=== PATIENT | female | born 1955 | race Caucasian/White ===

== ENCOUNTER → 2016-06-27 | Outpatient (CLI) | payer BC, OTHER ==
[~2016-06-27] MED LIST: /AMLO25TA PO; ALBU20IN INH; CEPALOZ2 MT; DEXA4TA PO; DOCU10ELUD PO; IPRA2IN INH; JANU50TA8 PO; LIDOCAINE 1% MDV 20ML VIAL As Ordered ONE; LORTTAB8 PO; MIRA255PW PO; MUCI600T34 PO; OCEA0.65; PRIL20CA PO; SIMV20TA2 PO; VIBR100C PO; VITA200028 PO; VITAMIN D2 PO
--- NOTE | 2016-06-27 15:52 | REP ---
ULTRASOUND GUIDED RIGHT THYROID BIOPSY: The procedure was performed under the direct supervision of Dr. Estrada. The patient has a history of a new 1.5 x 0.8 x 1.0 cm solid nodule in the right thyroid seen on a previous ultrasound dated 06/12/2016 from [facility]. The risks and benefits of the procedure were explained to the patient and informed consent was obtained. The right thyroid nodule is localized utilizing ultrasound guidance. The skin was prepped and draped in a sterile fashion. 1% lidocaine was used as a local anesthetic. Using ultrasound guidance four fine needle aspirations were obtained using 25 gauge needles. The samples were sent to the lab for analysis. The patient tolerated the procedure well and there were no immediate complications. After the appropriate amount of monitored convalescence the patient was discharged from the department. Reviewed by YENNI Milligan 06/27/2016 04:08 PEdited and Signed by Jhon Estrada MD 06/27/2016 04:33 P
--- NOTE | 2016-06-27 16:25 | REP ---
Thyroid sonography: History: The patient referred for ultrasound-guided fine needle aspiration biopsy of the thyroid. Pre-procedure scanning. Comparison sonography is from June 12, 2016 at [facility]. Findings: The left thyroid lobe is removed. The right lobe measures 5.5 x 4.7 x 3.0 cm. There are multiple right-sided nodules seen. Several of these are adjacent to and may indeed be part of the larger nodule in the right lobe seen previously. Anteriorly and laterally and somewhat inferiorly, there is a 1.4 x 1.4 x 0.7 cm nodule, which is new and hypoechoic and corresponds to the new nodule seen on the recent prior study. This nodule was selected as the target for today's FNA. Impression: Multinodular right thyroid lobe. Status post left thyroidectomy. A 1.4 cm solid and new nodule was selected for FNA aspiration biopsy. Signed by Jhon Estrada MD 06/27/2016 04:36 P
== END ==
LOC: M RADPRO 10:35
PROVIDERS: ATTEND Family Medicine
DX: E04.1 Nontoxic single thyroid nodule (principal)

== ENCOUNTER → 2017-03-16 | Outpatient (REF) | payer BC, OTHER ==
[~2017-03-16] MED LIST changes: -LIDOCAINE 1% MDV 20ML VIAL As Ordered ONE
== END ==
LOC: M LAB REF 11:00
PROVIDERS: ATTEND Physician Assistant
DX: J02.9 Acute pharyngitis, unspecified (principal)

== ENCOUNTER → 2017-04-22 | Outpatient (REF) | payer BC, OTHER | LOC: M LAB REF 18:56 | PROVIDERS: ATTEND Family Medicine | DX: Z12.4 Encounter for screening for malignant neoplasm of cervix (principal); N95.2 Postmenopausal atrophic vaginitis ==

== ENCOUNTER → 2019-07-27 | Outpatient (CLI) | payer MEDICARE, BC ==
[~2019-07-27] MED LIST changes: -/AMLO25TA PO; -DOCU10ELUD PO; +DOCU5LIQ PO; -MIRA255PW PO; +NORV2TAB PO; +POLY1POW4 PO
--- NOTE | 2019-07-30 15:13 | DEXA ---
AP SPINE L1 - L4 1.379 1.5 3.1 LT FEMUR TOTAL 1.083 0.6 1.8 LT NECK 0.920 -0.8 0.6 RT FEMUR TOTAL 1.098 0.7 1.9 RT NECK 0.917 -0.9 0.6 TOTAL BODY TOTAL OTHER COMMENTS: Normal bone densitometry of the spine and hips. The density of the spine is increased 4.9% since initial exam on 12/27/2010. The spine density has decreased 0.8% since the most recent exam on 02/28/2016. The density of the left hip has decreased 5.9% since the initial exam on 12/27/2010. The density of the left hip has decreased 6.7% since the most recent exam on 02/28/2016. The density of the right hip has decreased 1.9% since the initial exam on 12/27/2010. The density of the right hip has decreased 2.1% since the most recent exam on 02/28/2016. FOLLOW-UP: Recommendation for the next bone density exam: 5 years. STEVE
== END ==
LOC: M WHC 11:13
PROVIDERS: ATTEND Family Medicine
DX: Z13.820 Encounter for screening for osteoporosis (principal)

== ENCOUNTER → 2021-02-27 | Outpatient (REF) | payer MEDICARE, BC | LOC: M LAB REF 19:19 | PROVIDERS: ATTEND Family Medicine | DX: J20.9 Acute bronchitis, unspecified (principal) ==

== ENCOUNTER → 2021-10-04 | Outpatient (CLI) | payer MEDICARE, BC | LOC: M PLAIMG 09:29 | PROVIDERS: ATTEND Nurse Practitioner Adult Health | DX: M79.674 Pain in right toe(s) (principal) ==

== ENCOUNTER → 2022-03-01 | Outpatient (CLI) | payer MEDICARE, BC, OTHER | LOC: M WHC 09:38 | PROVIDERS: ATTEND Nurse Practitioner Adult Health | DX: Z13.820 Encounter for screening for osteoporosis (principal) ==

== ENCOUNTER → 2023-03-19 | Outpatient (CLI) | payer MEDICARE, BC, OTHER | LOC: M ONCR 10:55 | PROVIDERS: ATTEND General Practice | DX: C44.311 Basal cell carcinoma of skin of nose (principal); Z80.8 Family history of malignant neoplasm of other organs or systems; F17.210 Nicotine dependence, cigarettes, uncomplicated; Z71.2 Person consulting for explanation of examination or test findings; Z79.84 Long term (current) use of oral hypoglycemic drugs; Z79.899 Other long term (current) drug therapy ==

== ENCOUNTER → 2023-04-18 | Outpatient (RCR) | payer MEDICARE, BC, OTHER | LOC: M ONCR 03-26 13:47 | PROVIDERS: ATTEND General Practice | DX: Z51.0 Encounter for antineoplastic radiation therapy (principal); C44.311 Basal cell carcinoma of skin of nose ==

== ENCOUNTER 2023-05-17 09:52 | Outpatient (RCR) | payer MEDICARE, BC, OTHER | END 2023-05-19 | LOC: M ONCR 09:52 | PROVIDERS: ATTEND General Practice | DX: Z51.0 Encounter for antineoplastic radiation therapy (principal); C44.311 Basal cell carcinoma of skin of nose ==

== ENCOUNTER 2023-05-23 09:49 | Outpatient (RCR) | payer MEDICARE, BC, OTHER | END 2023-06-19 | LOC: M ONCR 09:49 | PROVIDERS: ATTEND General Practice | DX: Z51.0 Encounter for antineoplastic radiation therapy (principal); C44.311 Basal cell carcinoma of skin of nose ==

== ENCOUNTER → 2023-07-05 | Outpatient (CLI) | payer MEDICARE, BC, OTHER | LOC: M ONCR 10:15 | PROVIDERS: ATTEND General Practice | DX: Z08 Encounter for follow-up examination after completed treatment for malignant neoplasm (principal); Z85.828 Personal history of other malignant neoplasm of skin ==

== ENCOUNTER 2025-02-08 06:16 | Day surgery (SDC) | payer MEDICARE, BC ==
[~2025-02-08] VITALS: Ht 152.4 cm; Wt 73.7 kg
[~2025-02-08 06:16] MED LIST changes: +ALBU8.5H INH; +FARX1TAB5 PO; +LOSA100T5 PO; +POTA10CA70 PO; +SEMA2PEN PO; +SIMV20TA22 PO; +THERTAB52 PO; +TUMERIC PO; +VITA100065 PO; +VITATAB73 PO
[2025-02-08] MEDS ORDERED: MIDAZOLAM INJ 2 MG/2 ML VIAL As Ordered ONE (06:40)
[2025-02-08] MEDS: FLURBIPROFEN 0.03% OPHTH SOLN 2.5 ML OS SCH (06:58)
[2025-02-08] MEDS: TETRACAINE 0.5% OPHTH SOLN 4ML OS SCH (06:58)
[2025-02-08] MEDS: CYCLOPENTOLATE 1% OPHTH SOLN 2 ML BTL OS SCH (06:58)
[2025-02-08] MEDS: PHENYLEPHRINE 2.5% OPHTH SOL 2ML OS SCH (06:58)
[2025-02-08] MEDS ORDERED: LR 1,000 ML IV SCH (07:00)
[2025-02-08] MEDS: CEFUROXIME 1 MG/0.1 ML INTRACAMERAL INJ As Ordered ONE (07:32)
[2025-02-08] MEDS: LIDOCAINE 1% SDV 5 ML VIAL As Ordered ONE (07:32)
[2025-02-08 07:45] VITALS: BP 121/58; TEMP 97; O2SAT 97
== END 2025-02-08 08:04 | disposition home or self-care (01) ==
LOC: M SDC 06:16
PROVIDERS: ATTEND Ophthalmology
DX: H25.12 Age-related nuclear cataract, left eye (principal); I10 Essential (primary) hypertension; E78.5 Hyperlipidemia, unspecified; E11.9 Type 2 diabetes mellitus without complications; K21.9 Gastro-esophageal reflux disease without esophagitis; F32.A Depression, unspecified; Z92.3 Personal history of irradiation; Z79.899 Other long term (current) drug therapy; Z79.51 Long term (current) use of inhaled steroids; F17.210 Nicotine dependence, cigarettes, uncomplicated
CPT/HCPCS: 66984; J0697; J2250; J3010; V2632

== ENCOUNTER 2025-03-08 06:24 | Day surgery (SDC) | payer MEDICARE, BC ==
[~2025-03-08] VITALS: Ht 152.4 cm; Wt 74.8 kg
[~2025-03-08 06:24] MED LIST changes: -SEMA2PEN PO; +SEMA2PEN SC
[2025-03-08] MEDS ORDERED: LR 1,000 ML IV SCH (07:00)
[2025-03-08] MEDS ORDERED: MIDAZOLAM INJ 2 MG/2 ML VIAL As Ordered ONE (07:06)
[2025-03-08] MEDS: FLURBIPROFEN 0.03% OPHTH SOLN 2.5 ML OD SCH (07:09)
[2025-03-08] MEDS: PHENYLEPHRINE 2.5% OPHTH SOL 2ML OD SCH (07:09)
[2025-03-08] MEDS: CYCLOPENTOLATE 1% OPHTH SOLN 2 ML BTL OD SCH (07:09)
[2025-03-08] MEDS: TETRACAINE 0.5% OPHTH SOLN 4ML OD SCH (07:09)
[2025-03-08] MEDS: LIDOCAINE 1% SDV 5 ML VIAL As Ordered ONE (07:54)
[2025-03-08] MEDS: CEFUROXIME 1 MG/0.1 ML INTRACAMERAL INJ As Ordered ONE (07:55)
[2025-03-08 08:10] VITALS: BP 143/67; TEMP 97.9; O2SAT 97
== END 2025-03-08 08:26 | disposition home or self-care (01) ==
LOC: M SDC 06:24
PROVIDERS: ATTEND Ophthalmology
DX: E11.36 Type 2 diabetes mellitus with diabetic cataract (principal); H25.11 Age-related nuclear cataract, right eye; I10 Essential (primary) hypertension; E78.00 Pure hypercholesterolemia, unspecified; K21.9 Gastro-esophageal reflux disease without esophagitis; J45.909 Unspecified asthma, uncomplicated; F17.210 Nicotine dependence, cigarettes, uncomplicated; Z98.42 Cataract extraction status, left eye; Z79.85 Long-term (current) use of injectable non-insulin antidiabetic drugs; Z79.899 Other long term (current) drug therapy; Z79.84 Long term (current) use of oral hypoglycemic drugs; Z92.3 Personal history of irradiation
CPT/HCPCS: 66984; J0697; J2250; J3010; V2632

== ENCOUNTER 2025-03-12 10:16 | Observation (INO) | payer MEDICARE, BC ==
[~2025-03-12] VITALS: Ht 165.1 cm; Wt 74.8 kg
[2025-03-12] MEDS ORDERED: ISOVUE-370 76% 100 ML VIAL As Ordered ONE (11:02)
[2025-03-12 11:18] LABS: BASO # 0.0 10^3/uL (0.0-0.2); BASO % 0.5 % (0.0-1.0); EOS # 0.1 10^3/uL (0.0-0.5); EOS % 0.9 % (0.0-3.0); LYMPH # 1.7 10^3/uL (1.5-5.0); LYMPH % 22.0 % (24.0-44.0); MONO # 0.5 10^3/uL (0.0-0.8); MONO % 5.8 % (2.0-8.0); NEUTROPHILS # 5.5 10^3/uL (1.5-8.5); NEUTROPHILS % 70.5 % (36.0-66.0); PLATELET COUNT, AUTOMATED 183 10^3/uL (150-450)
[2025-03-12 11:31] LABS: INR 0.9
[2025-03-12 11:40] LABS: CALCIUM LEVEL 9.6 MG/DL (8.3-10.6); CARBON DIOXIDE LEVEL 31.0 MMOL/L (20-31); CHLORIDE LEVEL 100.0 MMOL/L (98-107); CK-MB VALUE MASS 1.2 NG/ML (<3.6); CREATININE FOR GFR 0.87 MG/DL (0.55-1.30); GLOMERULAR FILTRATION RATE 71.2 (>39); POTASSIUM SERUM 4.1 MMOL/L (3.5-5.1); SODIUM LEVEL 141.0 MMOL/L (136-145)
[2025-03-12 11:46] LABS: CPK CREATINE PHOSPHOKINASE 69.0 U/L (34-145); MB/CK RELATIVE INDEX 1.73 (< OR =4)
[2025-03-12] MEDS: MECLIZINE 25 MG TABLET PO ONE (13:48)
[2025-03-12 14:19] LABS: CK-MB VALUE MASS 1.4 NG/ML (<3.6)
[2025-03-12 14:22] LABS: CPK CREATINE PHOSPHOKINASE 71.0 U/L (34-145); MB/CK RELATIVE INDEX 1.97 (< OR =4)
[2025-03-12] MEDS ORDERED: PREDOPD OD (18:47)
[2025-03-12] MEDS ORDERED: CIPR0.3S37 OD (18:47)
[2025-03-12] MEDS ORDERED: PANT-23 PO (18:48)
[2025-03-12] MEDS ORDERED: HOME MED LIST COMPLETE! XX SCH (18:50)
[2025-03-12] MEDS ORDERED: ALBUTEROL 90 MCG/ACT 8 GM HFA INHALER INH PRN (19:35)
[2025-03-12] MEDS ORDERED: MOM 30 ML SUSPENSION UDC PO PRN (20:05)
[2025-03-12] MEDS ORDERED: ACETAMINOPHEN 325 MG TAB PO PRN (20:05)
[2025-03-12] MEDS ORDERED: PILL CUTTER 1 EACH XX PRN (20:20)
[2025-03-13] MEDS: LOSARTAN 50 MG TABLET PO SCH (10:31)
[2025-03-13] MEDS: PANTOPRAZOLE 40MG TAB PO SCH (10:33)
[2025-03-13 10:35] LABS: BASO # 0.0 10^3/uL (0.0-0.2); BASO % 0.1 % (0.0-1.0); EOS # 0.0 10^3/uL (0.0-0.5); EOS % 0.0 % (0.0-3.0); LYMPH # 1.2 10^3/uL (1.5-5.0); LYMPH % 12.3 % (24.0-44.0); MONO # 0.3 10^3/uL (0.0-0.8); MONO % 3.4 % (2.0-8.0); NEUTROPHILS # 7.8 10^3/uL (1.5-8.5); NEUTROPHILS % 83.8 % (36.0-66.0); PLATELET COUNT, AUTOMATED 184 10^3/uL (150-450)
[2025-03-13] MEDS: POTASSIUM CHLORIDE 10MEQ SR TABLET PO SCH (10:35)
[2025-03-13] MEDS: DAPAGLIFLOZIN PROPANEDIOL 10 MG TABLET PO SCH (10:35)
[2025-03-13] MEDS: ENOXAPARIN 40 MG/0.4 ML SYRINGE (J1650 PER 10MG) SC SCH (10:57)
[2025-03-13 11:07] LABS: ALT/SGPT 22.0 U/L (7.0-40); AST/SGOT 17.0 U/L (<34); CALCIUM LEVEL 9.3 MG/DL (8.3-10.6); CALCIUM LEVEL 9.4 MG/DL (8.3-10.6); CARBON DIOXIDE LEVEL 25.0 MMOL/L (20-31); CARBON DIOXIDE LEVEL 26.0 MMOL/L (20-31); CHLORIDE LEVEL 101.0 MMOL/L (98-107); CHLORIDE LEVEL 104.0 MMOL/L (98-107); CREATININE FOR GFR 0.91 MG/DL (0.55-1.30); GLOMERULAR FILTRATION RATE 67.5 (>39); MAGNESIUM LEVEL 1.8 MG/DL (1.8-2.4); POTASSIUM SERUM 3.6 MMOL/L (3.5-5.1); POTASSIUM SERUM 3.7 MMOL/L (3.5-5.1); SODIUM LEVEL 140.0 MMOL/L (136-145); SODIUM LEVEL 143.0 MMOL/L (136-145)
[2025-03-13 11:10] LABS: FREE T4 1.31 NG/DL (0.89-1.76)
[2025-03-13] MEDS ORDERED: GLUCOSE 4 GM CHEW PO PRN (11:15)
[2025-03-13] MEDS ORDERED: GLUCAGON INJ 1 MG VIAL SC PRN (11:15)
[2025-03-13] MEDS ORDERED: DEXTROSE 50% 50 ML SYRINGE IV PRN (11:15)
[2025-03-13] MEDS: hydroCHLOROthiazide 25 MG TAB PO SCH (11:43)
[2025-03-13 11:54] LABS: TOTAL T3 99.6 NG/DL (60.0-181.0)
[2025-03-13] MEDS: INSULIN LISPRO (NovoLOG) PER UNIT SC SCH ×2 (12:00→20:33)
[2025-03-13] MEDS: CIPROFLOXACIN 0.3% OPHTH SOLN 2.5 ML OD SCH (14:26)
[2025-03-13] MEDS: MECLIZINE 25 MG TABLET PO SCH (14:26)
[2025-03-13] MEDS: prednisoLONE ACET 1% OPHTH SUSP 5ML OD SCH (14:28)
[2025-03-13 14:37] VITALS: BP 139/67; TEMP 99.3; O2SAT 97
[2025-03-13 20:00] VITALS: BP 131/61; TEMP 97; O2SAT 97
[2025-03-13] MEDS: KETOROLAC 0.5% OPHTH SOLN OD SCH (21:12)
[2025-03-14 04:00] VITALS: BP 147/67; TEMP 97.5; O2SAT 97
[2025-03-14] MEDS: SIMVASTATIN 20 MG TAB PO SCH (08:47)
[2025-03-14 11:28] VITALS: BP_SYST 122; BP_SYST 127; BP_SYST 128; BP_DIAS 59; BP_DIAS 60; BP_DIAS 63
[2025-03-14 12:00] VITALS: BP 119/58; TEMP 97.3; O2SAT 96
[2025-03-14 19:47] VITALS: BP 110/55; TEMP 98.1; O2SAT 96
[2025-03-15 03:05] VITALS: BP 112/56; TEMP 97.7; O2SAT 97
[2025-03-15 05:53] LABS: PLATELET COUNT, AUTOMATED 159 10^3/uL (150-450)
[2025-03-15 06:16] LABS: CALCIUM LEVEL 8.6 MG/DL (8.3-10.6); CARBON DIOXIDE LEVEL 32.0 MMOL/L (20-31); CHLORIDE LEVEL 105.0 MMOL/L (98-107); CREATININE FOR GFR 1.07 MG/DL (0.55-1.30); GLOMERULAR FILTRATION RATE 55.5 (>39); POTASSIUM SERUM 3.9 MMOL/L (3.5-5.1); SODIUM LEVEL 145.0 MMOL/L (136-145)
[2025-03-15 10:01] VITALS: BP 129/64
[2025-03-15 11:44] VITALS: BP 117/56; TEMP 97.5; O2SAT 97
[2025-03-15] MEDS ORDERED: MECL-209 PO (15:14)
== END 2025-03-15 17:59 | disposition home or self-care (01) ==
LOC: M ED 10:16 → M ED INP 10:17 → M MS4PR 03-13 14:37
PROVIDERS: ADMIT Internal Medicine; ATTEND Internal Medicine
DX: R42 Dizziness and giddiness (principal); E11.9 Type 2 diabetes mellitus without complications; I10 Essential (primary) hypertension; Z79.2 Long term (current) use of antibiotics; Z79.899 Other long term (current) drug therapy; Z79.51 Long term (current) use of inhaled steroids
CPT/HCPCS: 36415; 70450; 70496; 70498; 70551; 71045; 80047; 80048; 80053; 82550; 82553; 83735; 84439; 84443; 84480; 84484; 85025; 85027; 85610; 85730; 86850; 86900; 86901; 93005; 93041; 93306; 94760; 96372; 96374; 97112; 97116; 97161; 97164; 97530; 99285; G0378; J1100; J1650; J1815; Q9967